=== PATIENT | female | born 1955 | race Asian ===

== ENCOUNTER 2020-08-24 15:26 | Outpatient (CLI) | payer OTHER ==
--- NOTE | 2020-08-24 16:21 | RAD ---
TWO VIEWS CHEST: Indication: Persistent reactive airway disease. Comparison: 09-05-18 FINDINGS: No consolidation, pleural effusion, or pneumothorax is evident. Heart and great vessels appear within normal limits. No acute osseous abnormality is evident. IMPRESSION: No acute cardiopulmonary infiltrate. POS: [facility]
== END 2020-08-24 15:27 | disposition home or self-care (01) ==
LOC: BICRAD 15:26
PROVIDERS: ATTEND Internal Medicine
DX: J45.40 Moderate persistent asthma, uncomplicated (principal)
CPT/HCPCS: 71046

== ENCOUNTER 2021-08-27 10:52 | Outpatient (CLI) | payer OTHER | END 2021-08-27 10:53 | disposition home or self-care (01) | LOC: BICMAMMO 10:52 | PROVIDERS: ATTEND Internal Medicine Rheumatology | DX: Z13.820 Encounter for screening for osteoporosis (principal); Z79.899 Other long term (current) drug therapy; M85.89 Other specified disorders of bone density and structure, multiple sites | CPT/HCPCS: 77080 ==

== ENCOUNTER 2024-01-24 14:54 | Outpatient (CLI) | payer OTHER | END 2024-01-24 14:55 | disposition home or self-care (01) | LOC: SCSRAD 14:54 | PROVIDERS: ATTEND Internal Medicine Rheumatology | DX: M54.40 Lumbago with sciatica, unspecified side (principal); M89.8X5 Other specified disorders of bone, thigh; M47.816 Spondylosis without myelopathy or radiculopathy, lumbar region; M47.817 Spondylosis without myelopathy or radiculopathy, lumbosacral region; M16.12 Unilateral primary osteoarthritis, left hip | CPT/HCPCS: 72100 ==